=== PATIENT | female | born 1950 | race Caucasian/White ===

== ENCOUNTER 2020-06-25 09:41 | Day surgery (SDC) | payer MEDICARE, OTHER ==
--- NOTE | 2020-06-19 13:12 | HP ---
DATE OF SURGERY: 06/25/2020 HISTORY OF PRESENT ILLNESS: The patient is a 69 year-old female presents with some abdominal pain. Reports that she went through menopause at age 45. Pap's were okay and not up to date on Pap for several years. Bowel movements have changed lately. Physical exam did show she had a 1+ cystocele and rectocele. Despite this she has not had a colonoscopy ever. She also does have a small umbilical hernia that is bothering her. We will address her colonoscopy and her umbilical hernia at this time before addressing her cystocele and rectocele. PAST MEDICAL HISTORY: Diabetes, hypertension, hyperlipidemia. PAST SURGICAL HISTORY: Hand surgery. ALLERGIES: NKDA. MEDICATIONS: Metoprolol, benazepril, Simvastatin, Januvia, pioglitazone, Metformin, Furosemide, aspirin. FAMILY HISTORY: Heart disease, cancer unspecified, hypertension. SOCIAL HISTORY: None. REVIEW OF SYSTEMS: CONSTITUTIONAL: Denies fever or chills. CHEST: Denies shortness of breath. CVS: Denies chest pain. ABDOMEN: Reports umbilical hernia pain, also reports generalized abdominal pain. Denies nausea, vomiting, diarrhea. Reports some constipation. Denies rectal bleeding. INTEGUMENTARY: Negative. PHYSICAL EXAMINATION: GENERAL: No acute distress. CHEST: Nonlabored. No shortness of breath. CVS: Regular rate and rhythm. ABDOMEN: Soft, tender at umbilical hernia. : 1+ cystocele and rectocele. EXTREMITIES: No edema. NEUROLOGIC: Alert. PSYCHIATRIC: Appropriate. IMPRESSION: Screening colonoscopy, abdominal pain, symptomatic umbilical hernia. PLAN: Colonoscopy and umbilical hernia repair with Dr. Oscar Ervin. As dictated by Yoselyn Piper NP.
[~2020-06-25 09:41] MED LIST: CEFAZOLIN 2 GM-D5W BAG** 2 GM/50 ML ML IV ONE; Lactated Ringers 1,000 ML IV ONE; Sensorcaine 0.25% 10 ML ONE
[2020-06-25] MEDS ORDERED: CEFAZOLIN 2 GM-D5W BAG** 2 GM/50 ML ML IV SCH (10:00)
[2020-06-25] MEDS ORDERED: Lactated Ringers 1,000 ML IV SCH (10:00)
[2020-06-25] MEDS ORDERED: TORAdol 30 mg Injection ONE ×2 (11:34→11:52)
[2020-06-25] MEDS ORDERED: Zofran 4 MG/2 ML VIAL ONE (11:52)
[2020-06-25] MEDS ORDERED: BRIDION 200MG/2ML IV ONE (11:52)
[2020-06-25] MEDS ORDERED: Xylocaine-Mpf 2% 5 Ml Vial ONE (11:52)
[2020-06-25] MEDS ORDERED: SUBLIMAZE 100 MCG/2 ML ONE (11:52)
[2020-06-25] MEDS ORDERED: Decadron 4 MG INJ ONE (11:52)
[2020-06-25] MEDS ORDERED: DIPRIVAN 200 MG/20 ML IV ONE (11:52)
[2020-06-25] MEDS ORDERED: Zemuron 100 MG/10 ML ONE (11:52)
[2020-06-25] MEDS ORDERED: MORPHINE SULFATE 10 MG/ML ONE (13:34)
[2020-06-25] MEDS ORDERED: Hydromorphone 1 mg/ml Injection ONE (13:40)
[2020-06-25 14:45] VITALS: BP 148/87; PULSE 98; O2SAT 92
--- NOTE | 2020-06-26 09:38 | OP ---
SURGERY DATE: 06/25/2020 SURGERY TIME: 115 PREOPERATIVE DIAGNOSIS: 1. MODERATE SIZED SYMPTOMATIC UMBILICAL HERNIA. 2. PATIENT REQUIRING COLONOSCOPY. POSTOPERATIVE DIAGNOSIS: 1. MILD DIVERTICULOSIS. 2. MODERATE SIZED SYMPTOMATIC UMBILICAL HERNIA. 3. PATIENT REQUIRING COLONOSCOPY. PROCEDURE: 1. Umbilical herniorrhaphy with mesh with incarcerated omentum. 2. Complete colonoscopy to the cecum. SURGEON: Oscar Ervin M.D. ANESTHESIA: General. COMPLICATIONS: None. CONDITION: Stable. INDICATION: Patient with the above stated condition. OPERATIVE PROCEDURE: Taken to surgery. General anesthetic. Routine prep and drape. Lower infraumbilical incision. Fairly large hernia. The defect was about an inch. 3 inches of incarcerated omentum was taken down and reduced. Fascial edges were clear. Bicomponent mesh was placed. Was pulled up. Secured with 4 quadrant sutures of 0 Prolene and 4 intraquadrant sutures of 0 Prolene. Subcutaneous tissue dry. Closed with 3-0 Vicryl, 4-0 Vicryl, and compressive umbilical dressing. Patient turned sideways. Anal digital examination, very light hemorrhoids. Scope introduced. Scope advanced to the cecum. Base of the cecum, ileocecal valve, and appendiceal orifice normal. Ascending, hepatic, transverse, splenic, descending, sigmoid, rectum, and anus normal. PLAN: Follow-up in 10 years on colonoscope.
== END 2020-06-25 14:54 | disposition home or self-care (01) ==
LOC: SDC 09:41
PROVIDERS: ATTEND Surgery
DX: K42.9 Umbilical hernia without obstruction or gangrene (principal); K57.30 Diverticulosis of large intestine without perforation or abscess without bleeding; K64.9 Unspecified hemorrhoids; E11.9 Type 2 diabetes mellitus without complications; I10 Essential (primary) hypertension; E78.5 Hyperlipidemia, unspecified; Z79.899 Other long term (current) drug therapy
CPT/HCPCS: 45378; 49587; 82947; C1781; J0690; J1100; J1170; J1885; J2270; J2405; J2704; J3010; L0625